=== PATIENT | male | born 1955 | race Caucasian/White ===

== ENCOUNTER 2022-02-25 14:31 | Emergency (ER) | payer MEDICARE, OTHER, SELFPAY ==
[2022-02-25 14:36] VITALS: BP 159/97; PULSE 120; RESP 16; TEMP 36.6; O2SAT 99
--- NOTE | 2022-02-25 14:37 | ED.EYEPROB ---
HPI - Eye Problem General Chief complaint: Eye Problems Stated complaint: EYE DRAINAGE Time Seen by Provider: 02/25/22 14:45 Source: patient, RN notes reviewed and old records reviewed Mode of arrival: ambulatory Limitations: no limitations History of Present Illness HPI Narrative: 66 year old male who presents to [facility] with complaints of right eye irritation since yesterday with yellow draining and matting noted from right eye today. Patient states that he also has feelings of having sinus congestion, sinus pain with drainage noted for the past 4 days which has progressively gotten worse. Patient reports that he has had sinus problems in the past with infections. He states also that he has had recent dental infection that he saw his dentist about and had treatment. Patient denies any acute cough, denies any known fevers chills or sweats, no body aches stated,has had COVID vaccination. Patient denies any shortness of breath at rest or with activity, no tachypnea noted or accessory muscle use. MD chief complaint: eye redness and other (purulent drainage right eye) Onset description: gradual Duration: constant Location: right eye Eye Symptoms: redness and discharge Mechanism: none Severity scale (1-10): 3 If Pain, Quality: aching Context: other (recent dental infection and also sinusitis symptoms) Associated symptoms: rhinorrhea and other (sinus pressure, pain and congestion) Treatments Prior to Arrival: OTC eye drops Related Data Home Medications Medication Instructions Recorded Confirmed fluticasone propionate INTRANASAL 02/25/22 lisinopril 02/25/22 lovastatin mg 02/25/22 omeprazole 02/25/22 Allergies Allergy/AdvReac Type Severity Reaction Status Date / Time No Known Allergies Allergy Verified 02/25/22 14:36 Review of Systems Review of Systems: CONSTITUTIONAL: Denies fever, chills, or sweats. EYES: Denies visual changes,positive for right eye conjunctiva and sclera redness, purulent discharge right eye, denies any sharp pain to right eye. ENT: rhinorrhea, congestion, sore throat, no otalgia. CARDIOVASCULAR: Denies chest pain, palpitations, or edema. RESPIRATORY: dry cough no dyspnea. GASTROINTESTINAL: Denies abdominal pain, nausea, vomiting, or diarrhea. GENITOURINARY: Denies dysuria or hematuria. SKIN: Denies rash or itching. MUSCULOSKELETAL: Denies back pain, joint pain, or myalgia. NEUROLOGIC: Denies headache, numbness, or weakness. PSYCHIATRIC: Denies anxiety or depression. All systems reviewed & are unremarkable except as noted in HPI and below PMFSH Past Medical History Medical History (Updated 02/25/22 @ 17:52 by Bernie Billings NP) History of sinus problem Hypercholesterolemia Hypertension Injury of shoulder, left shattered with pinning. Surgical History Surgical History (Updated 02/25/22 @ 17:56 by Bernie Billings NP) H/O shoulder surgery left shoulder shattered H/O Spinal surgery History of left inguinal hernia repair Family History Family History Mother Family history of migraine headaches Father Family history of lung cancer, Onset Age: 77 Patient's father is Other Diabetes mellitus Hypertension Social History Social History (Updated 02/25/22 @ 17:52 by Bernie Billings NP) Smoking status: Never smoker Alcohol intake: current Substance use: never Living arrangements: with family Gender identity (if verbalized by the patient): Male Comments At time of signature, agree with nursing past medical, surgical, social and family history. There is no relevant family history pertinent to the presenting complaint Exam Narrative: GENERAL: Well-appearing, well-nourished, and in no acute distress. HEAD: Normocephalic, atraumatic. EYES: PERRLA and EOMI.right eye sclera red with conjunctiva red also of right eye with yellowish drainage from right eye,denies any sharp pain to his righ
== END 2022-02-25 15:00 | disposition home or self-care (01) ==
PROVIDERS: Emergency Provider Registered Nurse
DX: J01.90 Acute sinusitis, unspecified (principal); H10.31 Unspecified acute conjunctivitis, right eye; E78.00 Pure hypercholesterolemia, unspecified; I10 Essential (primary) hypertension
CPT/HCPCS: 99203; G0463